=== PATIENT | female | born 1955 | race Native Hawaiian/Other Pacific Islander ===

== ENCOUNTER 2018-04-29 13:24 | Emergency (ER) | payer BC ==
[~2018-04-29] VITALS: Ht 160 cm; Wt 102.1 kg
[2018-04-29] MEDS ORDERED: MICRO-K10 MEQ PO (13:47)
[2018-04-29] MEDS ORDERED: LOSA50TA PO (13:48)
[2018-04-29] MEDS ORDERED: MYSOLINE50 MG PO (13:48)
[2018-04-29] MEDS ORDERED: BUSPIRONE10 MG PO (13:48)
[2018-04-29] MEDS ORDERED: PRISTIQ50 MG PO (13:49)
[2018-04-29] MEDS ORDERED: KP FOLIC ACID1 MG PO (13:49)
[2018-04-29] MEDS ORDERED: DIPH25CA90 PO (13:50)
[2018-04-29] MEDS ORDERED: GNP MELATONIN MA5 MG PO (13:50)
[2018-04-29] MEDS ORDERED: AMITRIPTYLIN50 MG PO (13:51)
[2018-04-29 13:57] LABS: PLATELET COUNT 271 K/uL (152-353)
[2018-04-29 14:10] LABS: POTASSIUM 4.7 mmol/L (3.6-5.2)
[2018-04-29 14:23] LABS: PARTIAL THROMBOPLASTIN TIME 22.5 SECONDS (24.5-33.6)
[2018-04-29 21:33] VITALS: BP 128/68; TEMP 98
== END 2018-04-29 21:40 | disposition short-term general hospital (02) ==
LOC: ED 13:24
PROVIDERS: Emergency Medicine
DX: R07.89 Other chest pain (principal); R79.9 Abnormal finding of blood chemistry, unspecified
CPT/HCPCS: 80053; 82550; 82553; 84484; 85027; 85610; 85730; 93005; 96372; 96374; 96375; 99284; J1170; J1650; J2405

== ENCOUNTER 2018-05-12 15:26 | Outpatient (CLI) | payer BC ==
[~2018-05-12 15:26] MED LIST: AMITRIPTYLIN50 MG PO; BUSPIRONE10 MG PO; DIPH25CA90 PO; GNP MELATONIN MA5 MG PO; KP FOLIC ACID1 MG PO; LOSA50TA PO; MICRO-K10 MEQ PO; MYSOLINE50 MG PO; PRISTIQ50 MG PO
== END 2018-05-12 19:23 | disposition home or self-care (01) ==
LOC: RAD 15:26
DX: M79.89 Other specified soft tissue disorders (principal); M25.571 Pain in right ankle and joints of right foot

== ENCOUNTER 2018-05-13 08:38 | Outpatient (CLI) | payer BC ==
[2018-05-13 09:15] LABS: PLATELET COUNT 317 K/uL (152-353)
[2018-05-13 09:28] LABS: POTASSIUM 3.5 mmol/L (3.6-5.2)
== END 2018-05-13 23:59 | disposition home or self-care (01) ==
LOC: LABW 08:38
PROVIDERS: Internal Medicine
DX: R41.3 Other amnesia (principal); I10 Essential (primary) hypertension; E53.8 Deficiency of other specified B group vitamins; Z79.899 Other long term (current) drug therapy; E55.9 Vitamin D deficiency, unspecified
CPT/HCPCS: 36415; 80053; 80061; 81000; 82306; 82607; 82747; 83540; 83735; 84439; 84443; 85027

== ENCOUNTER 2018-06-15 15:30 | Outpatient (CLI) | payer BC | END 2018-06-15 22:48 | disposition home or self-care (01) | LOC: RAD 15:30 | DX: K59.01 Slow transit constipation (principal) ==

== ENCOUNTER 2018-07-31 14:01 | Inpatient (IN) | payer OTHER ==
[2018-08-08] MEDS ORDERED: MELATONIN10 M1 PO (17:21)
[2018-08-08] MEDS ORDERED: CLOP75TA2 PO (17:23)
[2018-08-08] MEDS ORDERED: MYSOLINE50 MG PO (17:24)
[2018-08-08] MEDS ORDERED: D35000 UNIT PO (17:25)
[2018-08-08] MEDS ORDERED: POTASSIUM CHLO20 MEQ PO (17:27)
[2018-08-08] MEDS ORDERED: LIPITOR80 MG PO (17:28)
[2018-08-08] MEDS ORDERED: METHO2.5 PO (17:30)
[2018-08-08] MEDS ORDERED: ASA LOW DOSE81 MG PO (17:31)
[2018-08-08] MEDS ORDERED: ALEN70TA19 PO (17:32)
[2018-08-08] MEDS ORDERED: LAMICTAL25 M1 PO (17:37)
[2018-08-08] MEDS ORDERED: LINZESS72 MCG PO (17:50)
[2018-08-08] MEDS ORDERED: NITR0.4S2 SL (17:52)
[2018-08-08] MEDS ORDERED: ALPR0.2566 PO (17:53)
[2018-08-09] MEDS ORDERED: ALPR0.2566 PO (12:26)
[2018-08-09] MEDS ORDERED: AMIT25TA22 PO (12:26)
[2018-08-09] MEDS ORDERED: NITR100C56 PO (12:40)
[2018-08-09] MEDS ORDERED: NITR0.4S2 SL (12:40)
== END 2018-08-29 08:42 | disposition still patient (30) ==
LOC: PAVB 14:01
PROVIDERS: ADMIT Internal Medicine
DX: Z51.89 Encounter for other specified aftercare (principal)

== ENCOUNTER 2018-08-02 19:18 | Outpatient (CLI) | payer BC | END 2018-08-02 19:36 | disposition home or self-care (01) | LOC: LAB 19:18 | DX: Z02.2 Encounter for examination for admission to residential institution (principal); Z16.24 Resistance to multiple antibiotics; Z13.32 Encounter for screening for maternal depression | CPT/HCPCS: 87081 ==

== ENCOUNTER 2018-08-05 06:14 | Outpatient (CLI) | payer BC ==
[2018-08-05 06:42] LABS: PLATELET COUNT 250 K/uL (152-353)
== END 2018-08-05 22:21 | disposition home or self-care (01) ==
LOC: LAB 06:14
PROVIDERS: Internal Medicine
DX: E83.42 Hypomagnesemia (principal); Z79.899 Other long term (current) drug therapy
CPT/HCPCS: 82565; 83735; 84439; 84443; 84520; 85027

== ENCOUNTER 2018-08-07 13:24 | Outpatient (CLI) | payer BC ==
[2018-08-08] MEDS ORDERED: MELATONIN10 M1 PO (17:21)
[2018-08-08] MEDS ORDERED: CLOP75TA2 PO (17:23)
[2018-08-08] MEDS ORDERED: MYSOLINE50 MG PO (17:24)
[2018-08-08] MEDS ORDERED: D35000 UNIT PO (17:25)
[2018-08-08] MEDS ORDERED: POTASSIUM CHLO20 MEQ PO (17:27)
[2018-08-08] MEDS ORDERED: LIPITOR80 MG PO (17:28)
[2018-08-08] MEDS ORDERED: METHO2.5 PO (17:30)
[2018-08-08] MEDS ORDERED: ASA LOW DOSE81 MG PO (17:31)
[2018-08-08] MEDS ORDERED: ALEN70TA19 PO (17:32)
[2018-08-08] MEDS ORDERED: LAMICTAL25 M1 PO (17:37)
[2018-08-08] MEDS ORDERED: LINZESS72 MCG PO (17:50)
[2018-08-08] MEDS ORDERED: NITR0.4S2 SL (17:52)
[2018-08-08] MEDS ORDERED: ALPR0.2566 PO (17:53)
== END 2018-08-07 23:22 | disposition home or self-care (01) ==
LOC: MRI 13:24
DX: R41.3 Other amnesia (principal); R56.9 Unspecified convulsions
CPT/HCPCS: A9576

== ENCOUNTER 2018-08-08 13:29 | Observation (INO) | payer BC ==
[2018-08-08] VITALS (11 sets, daily range): BP systolic 101–149; BP diastolic 48–86; TEMP 97.5–98.2; Ht 157.5 cm; Wt 93.0 kg
[~2018-08-08] VITALS: Ht 157.5 cm; Wt 93.0 kg
[2018-08-08 14:13] LABS: PLATELET COUNT 255 K/uL (152-353)
[2018-08-08 14:25] LABS: POTASSIUM 4.3 mmol/L (3.6-5.2); SODIUM 136 mmol/L (136-145)
[2018-08-08] MEDS ORDERED: MELATONIN10 M1 PO (17:21)
[2018-08-08] MEDS ORDERED: CLOP75TA2 PO (17:23)
[2018-08-08] MEDS ORDERED: MYSOLINE50 MG PO (17:24)
[2018-08-08] MEDS ORDERED: D35000 UNIT PO (17:25)
[2018-08-08] MEDS ORDERED: POTASSIUM CHLO20 MEQ PO (17:27)
[2018-08-08] MEDS ORDERED: LIPITOR80 MG PO (17:28)
[2018-08-08] MEDS ORDERED: METHO2.5 PO (17:30)
[2018-08-08] MEDS ORDERED: ASA LOW DOSE81 MG PO (17:31)
[2018-08-08] MEDS ORDERED: ALEN70TA19 PO (17:32)
[2018-08-08] MEDS ORDERED: LAMICTAL25 M1 PO (17:37)
[2018-08-08] MEDS ORDERED: LINZESS72 MCG PO (17:50)
[2018-08-08] MEDS ORDERED: NITR0.4S2 SL (17:52)
[2018-08-08] MEDS ORDERED: ALPR0.2566 PO (17:53)
[2018-08-09] VITALS: BP 132/65; TEMP 97.7
[2018-08-09 04:00] VITALS: BP 128/72; TEMP 98
[2018-08-09 08:00] VITALS: BP 119/65; TEMP 97.4
[2018-08-09 12:00] VITALS: BP 117/60; TEMP 97.4
[2018-08-09] MEDS ORDERED: ALPR0.2566 PO (12:26)
[2018-08-09] MEDS ORDERED: AMIT25TA22 PO (12:26)
[2018-08-09] MEDS ORDERED: NITR0.4S2 SL (12:40)
[2018-08-09] MEDS ORDERED: NITR100C56 PO (12:40)
[2018-08-09 16:00] VITALS: BP 127/67; TEMP 97.6
== END 2018-08-09 17:10 ==
LOC: ED 13:29 → MED/SURG 15:44
PROVIDERS: Emergency Medicine
DX: R41.82 Altered mental status, unspecified (principal); N39.0 Urinary tract infection, site not specified; F03.90 Unspecified dementia, unspecified severity, without behavioral disturbance, psychotic disturbance, mood disturbance, and anxiety
CPT/HCPCS: 36415; 80053; 80307; 81000; 82550; 82553; 83605; 83880; 84443; 84484; 85027; 87086; 87088; 93005; 96361; 96365; 96374; 99220; 99284; G0378; J0696; J7060

== ENCOUNTER 2018-08-26 09:46 | Day surgery (SDC) | payer BC ==
[~2018-08-26 09:46] MED LIST changes: +ALEN70TA19 PO; +ALPR0.2566 PO; +AMIT25TA22 PO; +ASA LOW DOSE81 MG PO; +CLOP75TA2 PO; +D35000 UNIT PO; +LAMICTAL25 M1 PO; +LINZESS72 MCG PO; +LIPITOR80 MG PO; +MELATONIN10 M1 PO; +METHO2.5 PO; +NITR0.4S2 SL; +NITR100C56 PO; +POTASSIUM CHLO20 MEQ PO
== END 2018-08-26 10:30 | disposition home or self-care (01) ==
LOC: OR 09:46
PROC: 009U3ZX Drainage of Spinal Canal, Percutaneous Approach, Diagnostic (ICD-10-PCS; principal; 2018-08-26)
PROC: B01BYZZ Fluoroscopy of Spinal Cord using Other Contrast (ICD-10-PCS; 2018-08-26)
DX: R51 Headache (principal); R41.3 Other amnesia
CPT/HCPCS: 82945; 84155; 87070; 87205; 89050; J1020; J2001; J2704

== ENCOUNTER 2018-08-29 08:58 | Inpatient (IN) | payer OTHER | END 2018-09-01 14:39 | disposition E | LOC: PAVB 08:58 | PROVIDERS: ADMIT Internal Medicine ==